=== PATIENT | male | born 2000 | race Hispanic/Latino ===

== ENCOUNTER 2021-03-09 14:00 | Emergency (ER) | payer SELFPAY ==
[~2021-03-09] VITALS: Ht 175.3 cm; Wt 79.8 kg
[2021-03-09] MEDS ORDERED: D-ME1POW16 PO (14:20)
[2021-03-09 14:48] VITALS: BP 118/76
== END 2021-03-09 14:49 | disposition home or self-care (01) ==
LOC: EDH 14:00
DX: R05.9 Cough, unspecified (principal); J34.89 Other specified disorders of nose and nasal sinuses; T50.B95A Adverse effect of other viral vaccines, initial encounter; J45.909 Unspecified asthma, uncomplicated
CPT/HCPCS: 99282

== ENCOUNTER 2022-04-09 18:02 | Emergency (ER) | payer OTHER ==
[~2022-04-09] VITALS: Ht 157.5 cm; Wt 69.9 kg
[~2022-04-09 18:02] MED LIST: D-ME1POW16 PO
[2022-04-09] MEDS ORDERED: OSEL75 PO (19:03)
[2022-04-09 19:45] VITALS: BP 132/74
== END 2022-04-09 19:46 | disposition home or self-care (01) ==
LOC: EDH 18:02
DX: J10.1 Influenza due to other identified influenza virus with other respiratory manifestations (principal); B34.9 Viral infection, unspecified; Z20.822 Contact with and (suspected) exposure to COVID-19
CPT/HCPCS: 99283; 87635; 87804 ×2; C9803